=== PATIENT | male | born 1985 | race Caucasian/White ===

== ENCOUNTER → 2021-09-14 09:15 | Outpatient (CLI) | payer MEDICAID, SELFPAY ==
[2021-09-02 19:08] LABS: Amphetamine/Metha Screen,Urine Negative ng/ml (<1000); Barbiturates Screen,Urine Negative ng/ml (<200)
[2021-09-02 19:09] LABS: Benzodiazepines Screen,Urine Negative ng/ml (<200)
[2021-09-02 19:10] LABS: Cannabinoid Screen,Urine Negative ng/ml (<50); Cocaine Screen,Urine Negative ng/ml (<300)
[2021-09-02 19:11] LABS: Methadone Screen,Urine Negative ng/ml (<300)
[2021-09-02 19:12] LABS: Opiate Screen,Urine Negative ng/ml (<300)
[2021-09-02 19:14] LABS: Phencyclidine Screen,Urine Negative ng/ml (<25)
[2021-09-06 22:20] LABS: HCV Genotype Charge YES; Hepatitis C Genotype 1a (.)
== END ==
PROVIDERS: Visit Provider Emergency Medicine
DX: F41.9 Anxiety disorder, unspecified (principal)
CPT/HCPCS: 80305; 87522; 87902

== ENCOUNTER → 2021-11-27 10:43 | Outpatient (CLI) | payer MEDICAID, SELFPAY ==
[2021-11-27 11:03] LABS: Basophils # 0.1 K/mm3 (0-0.2); Eosinophils % 0.9 % (0.1-12.0); Hematocrit 46.3 % (42.0-52.0); Hemoglobin 15.2 g/dL (14.1-18.0); Lymphocytes # 1.6 K/mm3 (0.7-4.5); Lymphocytes % 31.1 % (10-50); Mean Corpuscular HGB Conc 32.9 g/dL (31.8-35.4); Mean Corpuscular Hemoglobin 28.7 pg (27.0-31.2); Mean Corpuscular Volume 87.4 fl (80-94); Mean Platelet Volume 8.3 fl (7.4-10.4); Monocytes # 0.4 K/mm3 (0.1-1.0); Monocytes % 7.3 % (1.7-9.3); Neutrophils % 58.7 % (37.0-80.0); Platelet Count 321 K/mm3 (142-424); Red Cell Distribution Width 13.3 % (11.5-17.5)
[2021-11-27 11:17] LABS: INR 1.09 (0.9-1.1); Prothrombin Time 12.2 seconds (10.1-12.5)
[2021-11-27 11:21] LABS: Chloride 99 mmol/L (98-107); Potassium 4.2 mmoL/L (3.5-5.1); Sodium 136 mmol/L (136-145)
[2021-11-27 11:23] LABS: Blood Urea Nitrogen 13 mg/dl (9-20); Estimated Glomerular Filt Rate 95 ml/min (>60); GFR (African American) 116 ML/MIN (>60)
[2021-11-27 11:24] LABS: Alanine Aminotransferase 85 U/L (12-78); Albumin Level 5.2 g/dl (3.5-5.0); Albumin/Globulin Ratio 1.7 (1.1-1.8); Alkaline Phosphatase 77 U/L (38-126); Anion Gap 14.2 mEq/L (5-15); Aspartate Amino Transferase 78 U/L (17-59); Bilirubin,Total 1.2 mg/dl (0.2-1.3); Calcium 10.2 mg/dl (8.4-10.2); Carbon Dioxide 27 mmol/L (22.0-30.0); Glucose 96 mg/dl (74-100); Total Protein,Serum 8.2 g/dl (6.3-8.2)
[2021-12-05 02:10] LABS: ALT (SGPT) P5P 81 IU/L (0-55); Alpha 2-Macroglobulins, Qn 203 mg/dL (110-276); Apolipoprotein A-1 179 mg/dL (101-178); Bilirubin, Total 0.5 mg/dL (0.0-1.2); Fibrosis Score 0.24 (0.00-0.21); Fibrosis Stage F0-F1 (.); GGT 47 IU/L (0-65); Haptoglobin 45 mg/dL (17-317); Necroinflammat Activity Grade A1-A2 (.); Necroinflammat Activity Score 0.46 (0.00-0.17)
[2021-12-07 23:06] LABS: Hep A Ab, Total Positive
[2021-12-07 23:07] LABS: Hep B Core Ab, Total Negative
[2021-12-09 17:09] LABS: HCV Genotype Charge YES; Hepatitis C Genotype 1a (.)
[2021-12-10 09:12] LABS: HIV Screen 4th Generation wRfx Non Reactive (Non Reactive); Hep B Surface Ab, Qual Reactive (.); Hepatitis B Surface Antigen Negative (Negative); Hepatitis C Antibody >11.0 s/co ratio (0.0-0.9)
== END ==
PROVIDERS: PCP Emergency Medicine; Visit Provider Emergency Medicine
DX: F41.9 Anxiety disorder, unspecified (principal); R53.83 Other fatigue; B19.20 Unspecified viral hepatitis C without hepatic coma; R94.5 Abnormal results of liver function studies
CPT/HCPCS: 36415; 80053; 81596; 85025; 85610; 86703; 86704; 86706; 86708; 87340; 87380; 87522; 87902; G0432

== ENCOUNTER → 2021-12-17 09:05 | Outpatient (CLI) | payer MEDICAID, SELFPAY ==
--- NOTE | 2021-12-17 09:05 | MR_ITS ---
FINAL REPORT CLINICAL HISTORY: back pain lower back pain bilateral leg pain tingleing , numbness , bilaeral legs worse on right FINDINGS: Multiplanar MR imaging of the lumbar spine was performed without contrast. Motion artifact is identified on many of the images. On the sagittal T2-weighted images, no significant disc degeneration is seen. The vertebral alignment is normal. There is no evidence of fracture. No bony mass is identified. The conus has an unremarkable appearance. No significant canal stenosis is identified. L1-2: No significant central canal stenosis or neuroforaminal narrowing. L2-3: No significant central canal stenosis or neuroforaminal narrowing. L3-4: No significant central canal stenosis or neuroforaminal narrowing. L4-5: An annular bulge is present with mild bilateral neural foraminal narrowing. L5-S1: An annular bulge is present. No significant central canal stenosis or neuroforaminal narrowing. IMPRESSION: Annular bulges at L4-5 and L5-S1 with mild bilateral neural foraminal narrowing at L4-5. Reviewed, Interpreted and Dictated by Duane Livingston III, MD Transcribed by Mary Oropeza Authenticated and [facility]
== END ==
PROVIDERS: PCP Emergency Medicine; Visit Provider Emergency Medicine
DX: M54.9 Dorsalgia, unspecified (principal); M54.50 Low back pain, unspecified; M79.605 Pain in left leg; M79.604 Pain in right leg
CPT/HCPCS: 72148; 76376

== ENCOUNTER 2022-03-19 08:56 | Day surgery (SDC) | payer MEDICAID, SELFPAY ==
[2022-03-03 13:43] VITALS: BMI 21.5
[2022-03-19] VITALS (7 sets, daily range): BP systolic 100–110; BP diastolic 61–71; PULSE 54–73; RESP 16–18; TEMP 36.2–37.3; O2SAT 95–100
--- NOTE | 2022-03-19 10:45 | P.PN_ITS ---
[facility] Medical History Family history of stroke History of kidney stones Hx of hepatitis C Surgical History History of placement of ear tubes Hx of breast lump removal Family History Other Family history of stroke Social History Smoking Status: Former smoker alcohol intake: never substance use type: denies use current occupational status: employed Travel in the last 8 weeks: None housing: house special monae needs: No agree to transfusion: No do you feel safe at home: Yes victim of physical abuse: No victim of emotional abuse: No victim of sexual abuse: No would you like helpful sources: No [facility] Anesthesia Checklist Patient Identification Patient Identification: Arm Band Structural Data Admitted From: Home Planned Operative Procedure/s: colonoscopy Consent for Planned Operative Procedure(s) Verified: Yes Verified Documents: Surgical Consent and History and Physical NPO Status Verified Time NPO: 00:00 Additional verifications Anesthesia Reactions: No Airway Assessment C-Spine Mobility Assessed: Yes TMJ Mobility Assessed: Yes Dentition: Good Dentition Neurological Assessment Level of Consciousness: Awake and Alert Anesthesia Plan Anesthesia Risk discussed: Yes Anesthesia Plan: Verified ASA Class: II Anesthesia Type: MAC
--- NOTE | 2022-03-19 11:13 | HMH.SCOPE ---
Procedure: Date: 03/19/22 Patient Date of :: 1985 Procedure Performed:: Colonoscopy Indications:: Blood in stools Performing Provider:: Johnathon Crane MD Referring Provider:: Jose Gentile MD Sedation:: See RN records Procedure:: After placing the patient in the left lateral decubitus position, the colonoscopy was gently inserted into the rectum and under direct visualization advanced to the cecum which was identified by transillumination in the right lower quadrant, identification of the ileocecal valve, appendiceal orifice, and cecal strap. Color, texture, mucosa, and anatomy of the colon were carefully examined with the scope. Findings:: Anal canal: normal Rectum: Internal hemorrhoids Sigmoid colon: normal without polyps or inflammatory changes Descending colon: normal without polyps or inflammatory changes Splenic flexure: normal Transverse colon: normal without polyps or inflammatory changes Hepatic flexure: normal Ascending colon: normal without polyps or inflammatory changes Cecum: normal Terminal ileum: not visualized Impression: Normal appearing colon Internal hemorrhoids Recommendations:: Reassuring examination Recommend topical creams and suppositories as needed for management of hemorrhoids Complications:: None Estimated blood obtained (mL): 0
== END 2022-03-19 12:04 | disposition home or self-care (01) ==
PROVIDERS: PCP Emergency Medicine; Visit Provider Internal Medicine
PROC: 0DJD8ZZ Inspection of Lower Intestinal Tract, Via Natural or Artificial Opening Endoscopic (ICD-10-PCS; CPT 45378; principal; 2022-03-19 10:30)
DX: R19.5 Other fecal abnormalities (principal); K64.8 Other hemorrhoids; Z79.899 Other long term (current) drug therapy
CPT/HCPCS: 45378

== ENCOUNTER → 2022-04-01 09:22 | Outpatient (POV) | payer MEDICAID, SELFPAY ==
[2022-04-01 09:49] VITALS: BP 137/80; PULSE 74; RESP 18; O2SAT 97; BMI 22.4
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
== END ==
PROVIDERS: PCP Emergency Medicine; Visit Provider Nurse Practitioner Family
DX: M51.36 Other intervertebral disc degeneration, lumbar region (principal); M79.604 Pain in right leg; M79.605 Pain in left leg
CPT/HCPCS: 99202; G0463

== ENCOUNTER 2022-04-15 08:01 | Day surgery (SDC) | payer MEDICAID, SELFPAY ==
[2022-04-15 08:24] VITALS: BP 118/71; PULSE 72; RESP 18; TEMP 37.6; O2SAT 100; BMI 21.8
[2022-04-15 09:03] VITALS: RESP 18
[2022-04-15 09:04] VITALS: BP 110/38; PULSE 67; RESP 18; O2SAT 97
[2022-04-15 09:21] VITALS: BP 127/79; PULSE 68; RESP 20
--- NOTE | 2022-04-15 09:26 | EXP.PAIN.PRO ---
Procedure Date: 04/15/22 Time: 09:10 Anesthesiologist:: Say Palomo CRNA Complications:: None Pre-procedure Diagnosis:: Degenerative disc disease lumbar spine multilevels Post-procedure Diagnosis:: Same. Indications for Procedure:: Very pleasant 36-year-old male that comes our clinic today for lumbar epidural steroid injections L4-5 level. Patient has described low back pain as constant, dull, aching with bilateral hip and leg radicular symptoms at times. He rates his pain 7/10. Procedure Details:: Procedure: Lumbar epidural steroid injection under fluoroscopy Informed consent was obtained and the risks and benefits of the procedure were explained to the patient. The patient was taken to the procedure room and noninvasive monitors placed, including noninvasive blood pressure cuff and pulse oximeter. The back was viewed using C-arm Fluoroscopy and prepped using Chloraprep as a cleansing solution and the L4-L5 interspace was palpated. Skin and subcutaneous tissues were anesthetized using lidocaine 1.5% and a 25-gauge needle. After this, an 18-gauge Touhy epidural needle was placed into the L4-L5 interspace and advanced using fluoroscopic guidance and loss of resistance to air until the epidural space was encountered. After confirmation of needle placement in the epidural space, with dye, a solution containing normal saline, 3 mL and Depo-Medrol 80 mg were incrementally injected into the lumbar epidural space. The patient tolerated the procedure well with no complications. The patient was observed in the Pain Clinic and then discharged home neurologically intact. Plan and Disposition:: Patient was discharged without incident
== END 2022-04-15 09:22 | disposition home or self-care (01) ==
LOC: SC.PAINP 08:02
PROVIDERS: PCP Emergency Medicine; Visit Provider Nurse Anesthetist, Certified Registered
DX: M51.16 Intervertebral disc disorders with radiculopathy, lumbar region (principal)
CPT/HCPCS: 62323; J1040

== ENCOUNTER → 2022-04-28 14:50 | Outpatient (POV) | payer MEDICAID, SELFPAY ==
[2022-04-28 14:58] VITALS: BP 134/87; PULSE 90; RESP 18; O2SAT 98; BMI 21.8
--- NOTE | 2022-04-28 15:53 | EXP.PAIN.SOA ---
[facility] Pain Management SOAP Note Subjective:: Patient is a pleasant 36-year-old male who presents today for follow-up of lumbar epidural steroid injection at L4-L5 on 04/15/2022. We are currently treating the patient for degenerative disc disease of lumbar spine multilevels with lumbar radiculopathy symptoms. Today the patient states he has had 0 relief following this injection and has continued to have significant headaches since having this shot. Patient states his pain is a 7 out of 10. Patient denies any new trauma or injury. Patient denies any change location or type of pain he experiences. Patient states the pain is all in his low back with radiating symptoms down his leg as well as bilateral elbow pain. Patient does take 800 mg ibuprofen along with 1000 mg Tylenol and 300 mg gabapentin 3 times a day. Patient denies any side effects from these medications. He states these medications do help manage his pain symptoms. Patient states he has tried [id number]-[id number] icy hot with minimal to no improvement of his symptoms. Patient states he does occasionally use CBD oil that provides improvement of his symptoms. Patient is also used heat and ice and states that heating pad does provide better temporary relief. Patient has not had physical therapy in the past. His Javier is [id number]. It has been reviewed and appropriate. Review of Systems: General: No recent weight changes, no fever, no sleep disturbances Respiratory: No cough, no shortness of air, no recurring pulmonary infections Cardiovascular/peripheral vascular: No chest pain, no palpitations, no edema, no shortness of breath Gastrointestinal: No new onset incontinence, normal bowel movements reported Genitourinary: No new onset incontinence Musculoskeletal: Low back pain, elbow pain Psychiatric: [Normal mood/affect] Neurological: [Denies weakness in extremities], [denies balance issues] Objective:: Physical Exam: General: Alert and oriented x3, no acute distress, pleasant and cooperative Lungs: Respirations even and unlabored, symmetrical chest expansion Eyes: PERRL Musculoskeletal: Flexion and extension of lumbar [spine] somewhat guarded secondary to pain, [antalgic gait noted] Neurological: Speech clear, no gross sensory deficit Assessment:: Degenerative disc disease of lumbar spine multilevels with lumbar radiculopathy symptoms, bilateral elbow pain, lateral epicondylitis Plan:: Patient continues to experience significant pain in his low back. I will order the patient a compounding cream at today's visit and prescribe him tizanidine 4 mg at bedtime with a 30-day supply of this medication. I have counseled the patient to always verify that his CBD cream is purchased from a legitimate pharmacy in order to verify no THC is present. Patient has been instructed if he would like to bring in his medication for us to review at the next visit he is more than welcome to. Patient will return to clinic in 1 month for reevaluation of symptoms and follow-up. Patient has been instructed to contact the clinic with any concerns before the next appointment. Dr. David has reviewed this note and agrees with this plan of care. This note was dictated using voice recognition software and make contain errors or omissions. [facility] Disclaimer: The information contained in this section may have been updated after the patient was seen, as this information can be updated by other users. Medical History Family history of stroke History of kidney stones Hx of hepatitis C Surgical History History of placement of ear tubes Hx of breast lump removal Family History Other Family history of stroke Social History Smoking Status: Former smoker alcohol intake: never substance
== END | disposition home or self-care (01) ==
PROVIDERS: PCP Emergency Medicine; Visit Provider Nurse Practitioner Family
DX: M51.16 Intervertebral disc disorders with radiculopathy, lumbar region (principal); M25.522 Pain in left elbow; M25.521 Pain in right elbow; M77.10 Lateral epicondylitis, unspecified elbow
CPT/HCPCS: 99212; G0463

== ENCOUNTER → 2022-05-26 09:52 | Outpatient (POV) | payer MEDICAID, SELFPAY ==
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
[2022-05-26 10:02] VITALS: BP 136/87; PULSE 82; RESP 18; O2SAT 97; BMI 21.9
== END | disposition home or self-care (01) ==
PROVIDERS: Visit Provider Nurse Practitioner Family
DX: M51.16 Intervertebral disc disorders with radiculopathy, lumbar region (principal); Z79.899 Other long term (current) drug therapy
CPT/HCPCS: 99212; G0463

== ENCOUNTER → 2022-09-04 10:33 | Outpatient (POV) | payer MEDICAID, SELFPAY ==
--- NOTE | 2022-09-04 11:11 | EXP.PAIN.SOA ---
[facility] Pain Management SOAP Note Subjective:: Patient is a pleasant 36-year-old male who presents today for follow-up. We are currently treating the patient for degenerative disc disease of lumbar spine with lumbar radiculopathy symptoms, epicondylitis lateral. Today he rates his pain a 6 out of 10. Patient denies any new trauma or injury. Patient denies any change to location or type of pain he experiences. Patient states the compounding cream that was prescribed to him at our last visit has provided significant improvements and that he has been able to increase his activity. He states he has recently taken a new job where he works 12-hour shifts and he has been able to continue exercising and running 5 miles a day along with doing extensive workouts with decreased pain symptoms. Patient is currently prescribed gabapentin 300 mg 3 times a day, [address] Gentile's office. He denies any side effects from this medication and states it does provide additional relief. He states he continues to take 500 mg Tylenol when he takes his ibuprofen. We did also prescribe him tizanidine 4 mg at night and he states this did provide significant relief. He did state he was late for his last visit with our office and Dr. Gentile sent in a refill of this medication. He is on Suboxone therapy from an outside provider. His Javier is [id number]. Its been reviewed and appropriate. Review of Systems: General: No recent weight changes, no fever, no sleep disturbances Respiratory: No cough, no shortness of air, no recurring pulmonary infections Cardiovascular/peripheral vascular: No chest pain, no palpitations, no edema, no shortness of breath Gastrointestinal: No new onset incontinence, normal bowel movements reported Genitourinary: No new onset incontinence Musculoskeletal: Low back pain, elbow pain Psychiatric: [Normal mood/affect] Neurological: [Denies weakness in extremities], [denies balance issues] Objective:: Physical Exam: General: Alert and oriented x3, no acute distress, pleasant and cooperative Lungs: Respirations even and unlabored, symmetrical chest expansion Eyes: PERRL Musculoskeletal: Flexion and extension of lumbar [spine] somewhat guarded secondary to pain, [antalgic gait noted] Neurological: Speech clear, no gross sensory deficit Assessment:: Degenerative disc disease of lumbar spine with lumbar radiculopathy symptoms, bilateral elbow pain, epicondylitis lateral Plan:: Patient is doing well with his current medication regimen and does not require any additional therapies or refills. Patient will return to clinic in 6 months for reevaluation of symptoms and plan of care. Patient has been instructed to contact the clinic with any concerns before the next appointment. Dr. David has reviewed this note and agrees with this plan of care. This note was dictated using voice recognition software and make contain errors or omissions. [facility] Disclaimer: The information contained in this section may have been updated after the patient was seen, as this information can be updated by other users. Medical History Family history of stroke History of kidney stones Hx of hepatitis C Surgical History History of placement of ear tubes Hx of breast lump removal below right nipple patient not sure what it was Family History Other Family history of stroke Social History Smoking Status: Former smoker alcohol intake: never substance use type: denies use current occupational status: employed Travel in the last 8 weeks: None housing: house special monae needs: No agree to transfusion: No do you feel safe at home: Yes victim of physical abuse: No victim of emotional abuse: No victim of sexual abuse: No would you like helpful sour
[2022-09-04 12:28] VITALS: BP 121/68; PULSE 75; RESP 18; O2SAT 99; BMI 22.1
== END ==
PROVIDERS: PCP Emergency Medicine; Visit Provider Nurse Practitioner Family
DX: M51.16 Intervertebral disc disorders with radiculopathy, lumbar region (principal); M25.521 Pain in right elbow; M25.522 Pain in left elbow; M77.10 Lateral epicondylitis, unspecified elbow
CPT/HCPCS: 99212; G0463

== ENCOUNTER → 2022-11-12 08:30 | Outpatient (CLI) | payer MEDICAID, SELFPAY ==
[2022-11-12 15:31] LABS: Basophils # 0.1 K/mm3 (0-0.2); Basophils % 1.3 % (0.1-2.0); Eosinophils # 0.1 K/mm3 (0.0-0.4); Hematocrit 44.5 % (42.0-52.0); Lymphocytes # 1.5 K/mm3 (0.7-4.5); Lymphocytes % 38.8 % (10-50); Mean Corpuscular HGB Conc 31.3 g/dL (31.8-35.4); Mean Corpuscular Hemoglobin 27.2 pg (27.0-31.2); Mean Corpuscular Volume 86.9 fl (80-94); Monocytes # 0.3 K/mm3 (0.1-1.0); Monocytes % 7.5 % (1.7-9.3); Neutrophils # 1.9 K/mm3 (1.8-7.8); Neutrophils % 50.4 % (37.0-80.0); Platelet Count 257 K/mm3 (142-424); Red Blood Count 5.12 M/mm3 (4.60-6.20); Red Cell Distribution Width 13.7 % (11.5-17.5); White Blood Count 3.7 K/mm3 (4.8-10.8)
[2022-11-12 15:41] LABS: Alanine Aminotransferase 77 U/L (12-78); Albumin Level 4.9 g/dl (3.5-5.0); Albumin/Globulin Ratio 1.8 (1.1-1.8); Alkaline Phosphatase 72 U/L (38-126); Anion Gap 14.5 mEq/L (5-15); Aspartate Amino Transferase 207 U/L (17-59); Bilirubin,Total 0.6 mg/dl (0.2-1.3); Blood Urea Nitrogen 21 mg/dl (9-20); Calcium 9.3 mg/dl (8.4-10.2); Carbon Dioxide 28 mmol/L (22.0-30.0); Chloride 102 mmol/L (98-107); Chol/HDL Ratio 2.1 (1-3.5); Cholesterol 207 mg/dl (140-200); Globulin 2.7 g/dL (1.3-3.2); Glucose 89 mg/dl (74-100); HDL Cholesterol 98 mg/dl (40-60); Potassium 4.5 mmoL/L (3.5-5.1); Sodium 140 mmol/L (136-145); Total Protein,Serum 7.6 g/dl (6.3-8.2); Triglycerides 56 mg/dl (30-150); VLDL Cholesterol 11 mg/dL (0-40)
[2022-11-12 15:47] LABS: Estimated Glomerular Filt Rate 84 ml/min (>60); GFR (African American) 102 ML/MIN (>60)
[2022-11-12 15:52] LABS: Direct LDL Cholesterol 92.23 mg/dL (100-129)
[2022-11-12 15:56] LABS: Free T4 (Free Thyroxine) 1.31 ng/dl (0.78-2.19)
[2022-11-12 15:58] LABS: 25-OH Vitamin D, Total 39.4 ng/mL (30-100)
[2022-11-12 16:10] LABS: Thyroid Stimulating Hormone 0.94 uIU/mL (0.465-4.68)
[2022-11-12 16:29] LABS: Vitamin B12 427 pg/mL (239-931)
== END ==
PROVIDERS: PCP Emergency Medicine; Visit Provider Emergency Medicine
DX: R53.83 Other fatigue (principal); E29.1 Testicular hypofunction; Z79.899 Other long term (current) drug therapy
CPT/HCPCS: 80053; 80061; 82306; 82607; 84439; 84443; 85025

== ENCOUNTER 2024-02-19 10:49 | Outpatient (CLI) | payer BC, SELFPAY ==
[2024-02-19 18:06] LABS: Basophils # 0.1 K/mm3 (0-0.2); Basophils % 1.7 % (0.1-2.0); Eosinophils # 0.1 K/mm3 (0.0-0.4); Eosinophils % 1.6 % (0.1-12.0); Hematocrit 49.4 % (42.0-52.0); Hemoglobin 15.8 g/dL (14.1-18.0); Lymphocytes # 1.8 K/mm3 (0.7-4.5); Lymphocytes % 31.8 % (10-50); Mean Corpuscular HGB Conc 31.9 g/dL (31.8-35.4); Mean Corpuscular Hemoglobin 27.9 pg (27.0-31.2); Mean Corpuscular Volume 87.4 fl (80-94); Mean Platelet Volume 8.7 fl (7.4-10.4); Monocytes # 0.7 K/mm3 (0.1-1.0); Monocytes % 11.6 % (1.7-9.3); Neutrophils # 3.1 K/mm3 (1.8-7.8); Neutrophils % 53.3 % (37.0-80.0); Platelet Count 385 K/mm3 (142-424); Red Blood Count 5.66 M/mm3 (4.60-6.20); Red Cell Distribution Width 15.1 % (11.5-17.5); White Blood Count 5.7 K/mm3 (4.8-10.8)
[2024-02-19 18:19] LABS: Hemoglobin A1C 5.6 % (4.0-6.0)
[2024-02-19 18:28] LABS: Alanine Aminotransferase 41 U/L (12-78); Albumin Level 4.4 g/dl (3.5-5.0); Albumin/Globulin Ratio 1.6 (1.1-1.8); Alkaline Phosphatase 50 U/L (38-126); Aspartate Amino Transferase 51 U/L (17-59); Bilirubin,Total 0.6 mg/dl (0.2-1.3); Blood Urea Nitrogen 17 mg/dl (9-20); Calcium 9.7 mg/dl (8.4-10.2); Carbon Dioxide 28 mmol/L (22.0-30.0); Chloride 103 mmol/L (98-107); Cholesterol 272 mg/dl (140-200); Estimated Glomerular Filt Rate 94 ml/min (>60); GFR (African American) 114 ML/MIN (>60); Globulin 2.7 g/dL (1.3-3.2); Glucose 99 mg/dl (74-100); HDL Cholesterol 21 mg/dl (40-60); Sodium 135 mmol/L (136-145); Total Protein,Serum 7.1 g/dl (6.3-8.2); Triglycerides 193 mg/dl (30-150); VLDL Cholesterol 39 mg/dL (0-40)
[2024-02-19 18:39] LABS: Direct LDL Cholesterol 243.05 mg/dL (100-129)
[2024-02-19 18:45] LABS: 25-OH Vitamin D, Total 58.5 ng/mL (30-100)
[2024-02-19 19:34] LABS: HIV (1&2) Antibody Rapid NONREACTIVE (NONREACTIVE)
[2024-02-23 14:23] LABS: HBsAg Screen Negative (Negative); HCV Ab Reactive (Non Reactive); Hep A Ab, IGM Negative (Negative); Hep B Core Ab, IgM Negative (Negative)
== END 2024-02-19 23:59 | disposition home or self-care (01) ==
LOC: LAB.DROPOF 02-22 10:49
PROVIDERS: Internal Medicine; PCP Family Medicine; Visit Provider Family Medicine
DX: Z00.00 Encounter for general adult medical examination without abnormal findings (principal); R53.83 Other fatigue; Z13.1 Encounter for screening for diabetes mellitus; B18.2 Chronic viral hepatitis C; Z11.59 Encounter for screening for other viral diseases; R20.0 Anesthesia of skin; I10 Essential (primary) hypertension; Z79.899 Other long term (current) drug therapy
CPT/HCPCS: 80053; 80061; 80074; 82306; 83036; 85025; 86803; 87389